=== PATIENT | male | born 1955 | race Caucasian/White ===

== ENCOUNTER 2023-11-11 07:05 | Outpatient (CLI) | payer BC, SELFPAY ==
--- OUTSIDE RECORDS SUMMARY | 2023-11-11 07:09 | XMS_ITS | Clinical Summary ---
Author Organization [facility] Address [place], [place] [address] Care Team Providers Care Engine Wiper Name Role Phone Sanjuanita Gonzalez DO Primary Care Provider Della Cordon DIRECTOR OF HEALTHCARE SYSTEMS Unavailable [phone] Allergies Active Allergy Reactions Criticality Noted Date Comments Cats (Fur, Dander, Saliva) 9 Dust Mites 06/21/2008 Medications Medication Sig Dispensed Refills Start Date End Date Status VITAMIN C 500 MG TAB 1 po qd 0 10/26/2006 Active ASPIRIN 325 MG TAB Once daily 0 11/05/2008 Active multivitamin (MVI) tablet take 1 tablet by oral route once daily with food has 700 IU vit d 0 02/05/2013 Active loratadine (CLARITIN) 10 mg tablet Take 1 tablet by mouth once daily. 0 07/09/2016 Active sildenafil citrate (VIAGRA) 100 mg tabletIndications:E rectile dysfunction due to diseases classified elsewhere Take 1 tablet by mouth once daily if needed for Erectile Dysfunction. Take 30min to 4 hours before sexual activity. Max 100mg/24hr. 10 tablet 11 08/15/2019 Active CPAPIndications:MONIK (obstructive sleep apnea) CPAP machine for home use at pressure: 5-16 cmw , Heated humidifier x 1 q 5 yr, Humidifier chamber x 1 q 6 mo, nasal face mask x1 q 3mos, with pillows x 2 q mo, standard tubing x 1 q 3 mo, Headgear x 1 q 6 mo, Filters: Disposable x 2 q mo non-disposable filters x1 q 6mo, Length of Need: 99 months, Frequency of use: Daily 1 Device 11 08/05/2020 Active amLODIPine (NORVASC) 10 mg tabletIndications:E ssential hypertension TAKE ONE TABLET(10MG) BY MOUTH ONCE DAILY 90 Tablet 4 09/05/2023 Active hydroCHLOROthiazide 25 mg tabletIndications:E ssential hypertension TAKE 1 TABLET (25 MG) BY MOUTH ONCE DAILY. 90 Tablet 4 09/05/2023 Active lisinopriL (PRINIVIL; ZESTRIL) 40 mg tabletIndications:E ssential hypertension Take 1 Tablet (40 mg) by mouth once daily. 90 Tablet 4 09/05/2023 Active simvastatin (ZOCOR) 20 mg tabletIndications:M ixed hyperlipidemia Take 1 Tablet (20 mg) by mouth at bedtime. 90 Tablet 4 09/05/2023 Active polyethylene glycol-electrolyte (GOLYTELY) 236-22.74-6.74 -5.86 gram suspensionIndicatio ns:Encounter for screening colonoscopy Drink 2 liters the day before colonoscopy and 2 liters 6 hours before colonoscopy appointment 4000 mL 10/17/2023 Active benzonatate (TESSALON) 200 mg capsuleIndications: Acute cough Take 1 Capsule (200 mg) by mouth 3 times daily if needed for Cough. 21 Capsule 07/21/2023 4 Discontinu ed(*Patien t states no longer taking) Active Problems Problem Noted Date Diagnosed Date Left knee pain 08/18/2018 Sleep disturbance 02/05/2013 Mixed hyperlipidemia 11/05/2008 Family history of colonic polyps 06/21/2008 Overview: Colonoscopy 06/2008 normal Colonoscopy in 5 years. Colonoscopy 09/2013 normal repeat in 10 years Unspecified hypertrophic and atrophic condition of skin 10/17/2007 Special screening for malignant neoplasm of pros meyers 10/17/2007 MONIK, 12/25/2006 AHI-55 01/12/2007 Unspecified essential hypertension 07/27/2006 Resolved Problems Problem Noted Date Diagnosed Date Resolved Date Sleep apnea, obstructive 02/05/201308/2016 Obesity, unspecified 04/01/2011 012 Overweight(278.02) 07/16/2009 0 Impaired fasting glucose 11/05/200810/2011 Routine general medical exam ination at a health care facility 11/23/2006 08/12/2009 Encounters Date Type Department Care Team Description 11/07/2023 10:00 AM CDT Office Visit [facility] [place] [address] Mari Bolton DO Pre-Op Exam (11/11/23 dr. denise [facility] colonoscopy. ) 11/06/2023 Travel 11/01/2023 Telephone [facility] [place] [address] Eric Denise MD Appointment 09/19/2023 7:30 AM CDT Orders Only [facility] [place] [address] Lab [facility] Lab 09/19/2023 Travel 09/05/2023 3:30 PM CDT Office Visit [facility] [place] [address] Sanjuanita Gonzalez DO Physical (68 yr) 09/05/2023 Telephone [facility] [place] [address] Eric Denise MD Pre Procedure 09/05/2023 Travel 08/24/2023 Refill [facility] [place] [address] Sanjuanita Gonzalez DO Refill Request (Hydrochlorothiazide, Amlodipine, Simvastatin, Lisinopril) from Last 3 Months Immunizations Name Administration Dates Next Due AMB Influenza, IIV4 PF (=>6 mos Flulaval,Fluzone Fluarix)(Flu Clinic Only) 02/02/2017 COVID-19 vaccine (Moderna 100mcg/0.5mL) PF, MDV 03/13/2021,08/15/2020,07/18/2020 COVID-19 vaccine (Moderna 50mcg/0.5mL) 12YO+ BIVALENT PF, MDV 01/12/2022 Influenza, IIV3 (Age 6-35 mos) 03/06/2011 Influenza, IIV3 (Age >=3 years) 02/07/20 19,02/10/2016,01/01/2014,2012,02/04/2012,03/06/2011,01/07/2010,1 ,04/10/2008,03/15/2007, 006,04/13/2005,04/05/2003 Influenza, IIV4 01/12/2022, 1,02/02/2017,2015,01/17/2013 Influenza, IIV4 (=>6mos) MDV 01/29/2020,02/06/20 15 Influenza, Injectable, Mdck, Quadrivalent, W/preservative 02/07/2018 Influenza,CCIIV4 PRESERV FREE 02/07/2018 Pneumococcal Conj 20-valent (Prevnar 20) 08/06/2022 Td (Age >=7 Years) 07/29/2021,10/19/2004 Tdap 02/04/2012 Zoster (Shingrix-RZV, recombinant) 01/12/2019, Family History Medical History Relation Name Comments Hypertension Father River Other Father River valve replaceme nt/prostate surgery Heart Disease Maternal Grandfather MO mid 60's Other Maternal Grandmother MO mid 70's Cancer Mother Gracy lung cancer smo ker Other Sister 1 Domonique from brain aneurysm Hypertension Sister 2 Daniela Diabetes Sister 3 Usha Other Sister 3 Usha Obesity Uterine cancer Sister 3 Usha Relation Name Status Comments Daughter 1 Alive Daughter 2 Alive Father River Alive Maternal Grandfather Maternal Grandmother Mother Gracy (Age age 52) lung c ancer age 42 Sister 1 Domonique (Age 49) Sister 2 Daniela Alive Sister 3 Usha Alive Son Alive Social History Tobacco Use Types Packs/Day Years Used Date Smoking Tobacco: Never Cigars Smokeless Tobacco: Former Tobacco Cessation:Counseling Given: Not Answered Comments:1 cigar a year Alcohol Use Standard Drinks/Week Comments Yes 5 (1 standard drink = 0.6 oz pure alcohol) 2 glasses wine and 4 beers/ week. PHQ-2 Answer Date Recorded PHQ-2 TOTAL SCORE 0 09/05/2023 Social Connections Answer Date Recorded Frequency of Communication with Friends and Fami ly 0 05/24/2023 Alcohol Use Answer Date Recorded How often do you have a drink containing alcohol ? 3 08/06/2022 How many drinks containing a lcohol do you have on a typical day when you are drinking? 0 08/06/2022 How often do you have five or more drinks on one occasion? 0 08/06/2022 Financial Resource Strain Answer Date R ecorded Difficulty of Paying Living Expenses 3 05/24/2023 Difficulty of Paying Living Expenses Not on file 05/24/2023 Food Insecurity Answer Date Recorded Worried About Running Out of Food in the Last Ye ar 1 05/24/2023 Transportation Needs Answer Date Record ed Lack of Transportation (Medical) 1 05/24/2023 Housing Stability Answer Date Recorded Unable to Pay for Housing in the Last Year 1 05/24/2023 Sex and Gender Information Value Date Recorded Sex Assigned at Not on file Gender Identity Not on file Sexual Orientation Not on file Obstetrics History Last Filed Vital Signs Vital Sign Reading Time Taken Comments Blood Pressure 156/80 11/07/2023 10:07 AM CDT Pulse 60 11/07/2023 10:07 AM CDT Temperature 36.8 ??C (98.2 ??F) 09/05/2023 3:34 PM CD T Respiratory Rate 16 07/21/2023 4:52 PM CDT Oxygen Saturation 95% 11/07/2023 10: 07 AM CDT Inhaled Oxygen Concentration - - Weight 100.2 kg (220 lb 12.8 oz) 2023 10:07 AM CDT Height 179.2 cm (5' 10.55) 11/07/2023 10:07 AM CDT Body Mass Index 31.19 11/07/2023 10:07 AM CDT Plan of Treatment Upcoming Encounters Date Type Department Care Team (Late st Contact Info) Description 11/11/2023 7:15 AM CDT Office Visit [facility] at [facility] [address] [place] [address] Eric Denise MD [address] [place] [address] Health Maintenance Due Date Last Done Comments COVID-19 vaccine series ( season) 2023 02/08/2023, 09/14/2022, 01/12/2022, Additional history exists Colonoscopy through age 75 10/10/202310/09, 10/09/2013, 06/21/2008 Influenza for age 65+ 01/01/2024 01/12/2022 , 01/07/2021, 01/29/2020, Additional history exists Depression screening for age 12+ 09/04/2024 09/05/2023, 09/05/2023, 08/06/2022, Additional history exists BMI (ht and wt on same day) for age 18+ 11/06/2024 11/07/2023, 09/05/2023, 10/12/2022, Additional history exists Lipids for age 45-75 09/18/2028 09/19/2023, 08/06/2022, 07/23/2021, Additional history exists Tetanus booster 07/30/2031 07/29/2021, 08/2011, 10/19/2004 Tdap Completed 02/04/2012 Zoster (shingles) series for age 50+ Completed 01/12/2019, 11/03/2018 Pneumococcal series for age 65+ Completed Hepatitis C screening for ag e 18-79 Completed 09/02/2023 (Completed outsid e of Loly) Procedures Procedure Name Priority Date/Time Associated Diagnosis Comments POTASSIUM Routine 11/07/2023 10:56 AM CDT Pre-op exam Screening for colon cancer PSA TOTAL SCREEN Routine 09/19/2023 7:25 AM CDT Prostate cancer screening BASIC METABOLIC PANEL Routine 09/19/2023 7:25 AM CDT Diabetes mellitus screening LIPID PANEL W REFLEX MEASURED LDL Routine 09/19/2023 7:25 AM CDT Mixed hyperlipidemia from Last 3 Months Results * POTASSIUM (11/07/2023 10:56 AM CDT) POTASSIUM 3.9 3.5 - 5.1 mmol/L 11/07/2023 7:31 PM CDT [facility] Blood BLOOD SPECIMEN / Unknown Venipuncture / Unknown 11/07/2023 10:56 AM CDT 11/07/2023 10:57 AM CDT Mari Bolton DO CHEMISTRY [facility] [address] [place] [address], * LIPID PANEL W REFLEX MEASURED LDL (09/19/2023 7:25 AM CDT) CHOLESTEROL,TOTAL 157 100 - 199 mg/dL 09/19/2023 5:56 PM CDT [facility] Comment: Cholesterol, Total Reference Ranges Desirable <200 mg/dL Borderline 200-239 mg/dL High >=240 mg/dL TRIGLYCERIDES 84 <150 mg/dL 09/19/2023 5:56 PM CDT [facility] HDL CHOLESTEROL 51 >40 mg/dL 5:56 PM CDT [facility] NON-HDL CHOLESTEROL 106 <145 mg/dl 09/19/2023 5:56 PM CDT [facility] CHOL/HDL RATIO 3.08 <4.50 09/19/2023 5:56 PM CDT [facility] LDL CHOLESTEROL 89 <=130 mg/dL 09/19/2023 5:56 PM CDT [facility] VLDL CHOLESTEROL 17 <=30 mg/dL 09/19/2023 5:56 PM CDT [facility] PROVIDER ORDERED STATUS RANDOM 09/19/2023 5:56 PM CDT [facility] Blood BLOOD SPECIMEN / Unknown Venipuncture / Unknown 09/19/2023 7:25 AM CDT 09/19/2023 7:25 AM CDT Sanjuanita Gonzalez DO CHEMISTRY Performing Organization Address City/[facility]/ZIP Co de Phone Number [facility] [address] [place] [address], * (ABNORMAL) BASIC METABOLIC PANEL (09/19/2023 7:25 AM CDT) SODIUM 141 136 - 145 mmol/L 09/19/2023 5:56 PM CDT [facility] POTASSIUM 4.1 3.5 - 5.1 mmol/L 09/19/2023 5:56 PM CDT [facility] CHLORIDE 103 98 - 107 mmol/L 09/19/2023 5:56 PM CDT [facility] CO2,TOTAL 28 22 - 29 mmol/L 09/19/2023 5:56 PM CDT [facility] ANION GAP 10 5 - 18 09/19/2023 5:56 PM CDT [facility] GLUCOSE 105(H) 70 - 99 mg/dL 09/19/2023 5:56 PM T [facility] CALCIUM 9.7 8.8 - 10.2 mg/dL 09/19/2023 5:56 PM CDT [facility] BUN 18 8 - 23 mg/dL 09/19/2023 5:56 PM T [facility] CREATININE 0.90 0.70 - 1.20 mg/dL 09/19/2023 5:56 PM T [facility] BUN/CREAT RATIO 20 10 - 20 5:56 PM T [facility] eGFR >90 >90 mL/min/1.7 3m2 09/19/2023 5:56 PM T [facility] Comment:As of 2021, eG FR is calculated by the CKD-EPI creatinine equation without race adjustment. ??eGFR can be influenced by muscle mass, exercise, and diet. ??The reported eGFR is an estimation only and is only applicable if the renal function is stable. Blood BLOOD SPECIMEN / Unknown Venipuncture / Unknown 09/19/2023 7:25 AM CDT 09/19/2023 7:25 AM CDT Sanjuanita Gonzalez DO CHEMISTRY [facility] [address] [place] [address], * PSA TOTAL SCREEN - Dx Auto-associated (09/19/2023 7:25 AM CDT) PSA TOTAL (SCREEN) 0.73 <4.00 ng/mL 09/19/2023 5:56 PM CDT [facility] Blood BLOOD SPECIMEN / Unknown Venipuncture / Unknown 09/19/2023 7:25 AM CDT 09/19/2023 7:25 AM CDT Narrative [facility] - 09/19/2023 5:56 PM CDT The test method changed on 10/26/2022. If this test has been used for serial monitoring, rebaselining is recommended. Rebaselining consists of 2 measurements, collected 3-6 weeks apart. The [employer] Elecsys total PSA assay is an electrochemiluminescence immunoassay ECLIA performed on the [employer] Clara e immunoassay analyzers. Values obtained with different assay methods may be different and cannot be used interchangeably. Sanjuanita Gonzalez DO LABORATORY [facility] [address] [place] [address], from Last 3 Months Care Teams Engine Wiper Relationship Specialty Start Date End Date Sanjuanita Gonzalez DO [address] [place] [address] PCP - General Family Practice 11/22/11 Della Cordon NP [address] [place] [address] Sleep Medicine 08/28/18
--- NOTE | 2023-11-11 09:02 | W.ANESCHARGE ---
Anesthesia Charges Start Date/Time Anesthesia Start Date: 11/11/23 Anesthesia Start Time: 08:17 Stop Date/Time Anesthesia Stop Date: 11/11/23 Anesthesia Stop Time: 09:00
--- NOTE | 2023-11-11 10:20 | W.ANESCHARGE ---
Anesthesia Charges Start Date/Time Anesthesia Start Date: 11/11/23 Anesthesia Start Time: 08:17 Stop Date/Time Anesthesia Stop Date: 11/11/23 Anesthesia Stop Time: 09:00
== END 2023-11-11 07:06 | disposition home or self-care (01) ==
LOC: OP CLINIC 07:07
PROVIDERS: PCP Family Medicine; Visit Provider Internal Medicine Gastroenterology
DX: Z12.11 Encounter for screening for malignant neoplasm of colon (principal); K63.5 Polyp of colon; Q43.8 Other specified congenital malformations of intestine
CPT/HCPCS: 00811; 45381; 45385; 88305; J2704

== ENCOUNTER 2025-02-08 07:38 | Outpatient (CLI) | payer MEDICARE, BC, SELFPAY ==
--- NOTE | 2025-02-08 08:57 | P.ANES_ITS ---
Anesthesia Charges Start Date/Time Anesthesia Start Date: 02/08/25 Anesthesia Start Time: 08:30 Stop Date/Time Anesthesia Stop Date: 02/08/25 Anesthesia Stop Time: 08:55 Coding CPT Codes CPT Codes: ANES LWR INTST SCR COLSC - 78780 ([id number]) P2 - PATIENT W/MILD SYST DISEASE, QZ - ASSEMBLER GOLD FRAME SVC W/O FAMILY WELFARE SOCIAL WORK PROFESSOR BY
--- NOTE | 2025-02-08 08:57 | W.ANESCHARGE ---
Anesthesia Charges Start Date/Time Anesthesia Start Date: 02/08/25 Anesthesia Start Time: 08:30 Stop Date/Time Anesthesia Stop Date: 02/08/25 Anesthesia Stop Time: 08:55 Coding CPT Codes CPT Codes: ANES LWR INTST SCR COLSC - 82917 ([id number]) P2 - PATIENT W/MILD SYST DISEASE, QZ - REGULATORY AFFAIRS STRATEGY SPECIALIST SVC W/O APPRAISAL SPECIALIST BY
== END 2025-02-08 07:39 | disposition home or self-care (01) ==
PROVIDERS: PCP Family Medicine; Visit Provider Internal Medicine Gastroenterology
DX: Z12.11 Encounter for screening for malignant neoplasm of colon (principal); Z86.0101 Personal history of adenomatous and serrated colon polyps; K57.30 Diverticulosis of large intestine without perforation or abscess without bleeding
CPT/HCPCS: 00812; 45378; J2704